=== PATIENT | male | born 1990 | race Two or more races ===

== ENCOUNTER 2018-11-02 17:04 | Emergency (ER) | payer BC ==
[~2018-11-02] VITALS: Ht 162.6 cm; Wt 69.9 kg
[2018-11-02 17:35] VITALS: BP 106/68
[2018-11-02] MEDS ORDERED: BACLOFEN 10 MG TAB PO ONE (18:45)
[2018-11-02] MEDS ORDERED: HYDROcodone-ACET 5/325MG TAB PO ONE (18:45)
== END 2018-11-02 19:24 | disposition home or self-care (01) ==
LOC: ER 17:16
DX: M62.838 Other muscle spasm (principal); V49.49XA Driver injured in collision with other motor vehicles in traffic accident, initial encounter; Y93.89 Activity, other specified; Y99.8 Other external cause status; Y92.410 Unspecified street and highway as the place of occurrence of the external cause
CPT/HCPCS: 70450; 72040; 72100